=== PATIENT | female | born 1980 | race African-American/Black ===

== ENCOUNTER 2020-04-28 15:49 | Emergency (ER) | payer OTHER, SELFPAY ==
--- NOTE | ~2020-04-28 | US_ITS ---
US OB <=14 wk fetus w TV DATE: 04/28/2020 18:15 INDICATION: Abdominal pain, pelvic pain TECHNIQUE: Real time imaging and doppler analysis COMPARISON: None FINDINGS: There is a dichorionic diamniotic twin gestation. Both fetuses are live; Twin A heart rate of 155 beats per minute; crown rump length of 3.32 cm; 10 weeks 2 days estimated ge stational age. Twin B heart rate of 169 beats per minute; crown rump length of 2.83 cm; 9 weeks 4 days estimated ges tational age. Right ovary 3.5 x 2.1 x 2.4 cm. Left ovary 2.6 x 3.4 x 2.8 cm; 1.9 x 2.5 cm left ovarian simple cyst. No pelvic mass lesion or abnormal free pelvic fluid collection. IMPRESSION: Dichorionic diamniotic twin gestation Reviewed, dictated and finalized at [facility]. Reviewed, dictated and finalized at [facility]. [employer]
[2020-04-28 16:12] VITALS: BP 133/91; PULSE 112; RESP 20; TEMP 37.3; O2SAT 100
[2020-04-28 18:39] LABS: Basophils Absolute Auto 0.1 K/mm3 (0.0-0.1); Basophils Percent Auto 0.8 % (0.2-1.2); Eosinophils Absolute Auto 0.2 K/mm3 (0-0.3); Hematocrit 35.6 % (37.0-47.0); Hemoglobin 12.8 g/dL (12.0-15.0); Immature Granulocyte Absolute 0.03 K/mm3 (0.00-0.031); Immature Granulocyte Percent A 0.3 % (0-0.5); Lymphocytes Absolute Auto 2.92 K/mm3 (0.9-3.2); Lymphocytes Percent Auto 33.9 % (18.3-44.2); Mean Corpuscular Hemoglobin 30.5 pg (26-34); Mean Platelet Volume 10.3 fl (7.4-10.4); Monocytes Absolute Auto 0.6 K/mm3 (0.1-0.6); Monocytes Percent Auto 6.9 % (2.6-8.5); Neutrophils Absolute Auto 4.8 K/mm3 (1.3-6.7); Neutrophils Percent Auto 56.1 % (45.5-73.1); Platelet Count Result 373 k/mm3 (150-375); Red Blood Count 4.19 M/mm3 (4.2-5.4); Red Cell Distribution Width 12.8 % (11.5-14.5); White Blood Count 8.6 K/mm3 (4.5-10.0)
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
[2020-04-28] MEDS: SODIUM CHLORIDE 0.9% IV 1,000 ML 999 ML IV CONT (18:50)
[2020-04-28 19:01] LABS: Add Urine Microscopic? NO; Appearance Urine Clear (Clear); Bilirubin Urine Negative (Negative); Blood Urine Negative (Negative); Color Urine Straw (Yellow); Glucose Urine UA Negative (Negative); Ketones Urine Negative (Negative); Leukocyte Esterase Ur Negative LEU/UL (Negative); Nitrate Urine Negative (Negative); Protein Urine Negative (Negative); Specific Grav Ur 1.011 (1.001-1.035); Urobilinogen Urine Negative mg/dL (<2.0)
[2020-04-28 19:06] LABS: Alanine Aminotransferase 12 U/L (4-35); Albumin Level 4.3 g/dL (3.5-5.1); Alkaline Phosphatase 52 U/L (38-126); Anion Gap 5 mmol/L (8-16); Aspartate Amino Transferase 22 U/L (14-36); Bilirubin,Total 0.5 mg/dL (0.2-1.3); Blood Urea Nitrogen 10 mg/dL (7-17); Calcium 9.3 mg/dL (8.4-10.2); Carbon Dioxide 26 mmol/L (22-30); Chloride 102 mmol/L (98-107); Estimated Glomerular Filt Rate > 60; Glucose 84 mg/dL (65-105); Lipase 101 U/L (23-300); Potassium 3.5 mmol/L (3.4-5.0); Sodium 133 mmol/L (137-145)
[2020-04-28 19:19] VITALS: TEMP 37.3
[2020-04-28 19:21] VITALS: BP 143/92; PULSE 92; RESP 16; O2SAT 100
[2020-04-28 20:21] VITALS: BP 137/71; PULSE 91; RESP 18; O2SAT 96
== END 2020-04-28 20:23 | disposition home or self-care (01) ==
PROVIDERS: General Practice; Emergency Provider Emergency Medicine; PCP Obstetrics & Gynecology
DX: O9A.211 Injury, poisoning and certain other consequences of external causes complicating pregnancy, first trimester (principal); S39.012A Strain of muscle, fascia and tendon of lower back, initial encounter; O30.041 Twin pregnancy, dichorionic/diamniotic, first trimester; Z3A.10 10 weeks gestation of pregnancy; V43.52XA Car driver injured in collision with other type car in traffic accident, initial encounter
CPT/HCPCS: 36415; 76801; 76817; 80053; 81003; 83690; 84702; 85025; 85461; 96361; 96374; 99284; J0131; J7030

== ENCOUNTER 2020-06-27 11:17 | Observation (INO) | payer OTHER, SELFPAY ==
--- NOTE | ~2020-06-27 | US_ITS ---
EXAMINATION: US OB follow up, US OB transvaginal EXAM DATE: 06/27/2020 12:43 INDICATION: well being, measurement, twin gestations. 2nd trimester. TECHNIQUE: Pelvic obstetrical twin gestation, transabdominal and transvaginal sonogram was performe d by a technologist. There are multiple grayscale and Doppler images available for interpretation. C omparison is made to prior examination from 04/28/2020. FINDINGS: There are twin intrauterine gestations with a sac separation identified. One of the fetuses is live with heart rate 149 bpm, in vertex presentation, age by ultrasound 19 weeks 2 days (de tailed Biometrics below). The other nonviable fetus is much smaller, crown-rump length of 4 cm corres ponding to estimated gestational age 10 weeks 6 days. Placenta is posteriorly located and unremarkabl e. Cervical canal length is 7.5 cm, no cervical funneling. Subjectively expected amount of amniotic f luid. BIOMETRIC DATA for the live gestation: Biparietal diameter (BPD): 4.4 cm --------------> 19 weeks 2 days. Head circumference (HC): 16.0 cm ---------------> 18 weeks 6 days. Abdominal circumference (AC): 14.5 cm ---------> 19 weeks 6 days. Femur length (FL): 2.7 cm ------------------------> 18 weeks 1 day. These measurements are concordant. HC/AC ratio is 1.10 (The 5th -- 95th percentile range is 1.09-1.26. Estimated weight is 269 g +/- 40 g. This is the 54th percentile when the currently reported cl inical gestation age 18 weeks 6 days, clinical estimated date of delivery (LACI-OPE) 11/22 is used. Fet al estimated gestational age based on measurements from this exam is 19 weeks 0 days, with an estimat ed date of delivery (LACI-AUA) 11/21. IMPRESSION: 1. Twin gestations, one live with heart rate 149 bpm and expected interval growth at 54th percentile . 2. The other gestation nonviable with 4 cm crown-rump. 3. Placental canal measuring 7.5 cm Reviewed, dictated and finalized at [facility]. IMPRESSION: 1. Twin gestations, one live with heart rate 149 bpm and expected interval sobia wth at 54th percentile. 2. The other gestation nonviable with 4 cm crown-rump. 3. Placental canal measuring 7.5 cm
--- NOTE | 2020-06-27 11:17 | OBADM ---
This patient, Cole Duron, admitted to the OB room OB Post 116 for observation. Patient/family oriented to hospital policies and general routines including ID bracelet, bed and alarms, visiting hours, pain management, procedures, bathroom and other care routines, personal items, smoking policy, room service/diet, and visiting hours. Patient/Family are encouraged to report perceived risks to care and to ask questions if they do not understand what they are told or what they should do.
[2020-06-27 11:30] VITALS: PULSE 92; RESP 16; BMI 25.2
[2020-06-27 11:38] VITALS: BP 136/108; PULSE 94
[2020-06-27 11:45] VITALS: BP 112/74; PULSE 92
[2020-06-27 11:54] LABS: Add Urine Microscopic? YES; Appearance Urine Clear (Clear); Bacteria Urine 4+ /hpf; Bilirubin Urine Negative (Negative); Blood Urine Negative (Negative); Color Urine Yellow (Yellow); Glucose Urine UA Negative (Negative); Ketones Urine Negative (Negative); Leukocyte Esterase Ur Trace LEU/UL (NEGATIVE); Mucus Urine Rare /lpf; Nitrate Urine Negative (Negative); Protein Urine Negative (Negative); RBC Urine 0-2 /hpf (0-2); Specific Grav Ur 1.012 (1.001-1.035); Squamous Epithelial Cell Urine Few /hpf (Few); Urobilinogen Urine Negative mg/dL (<2.0)
[2020-06-27 12:00] VITALS: BP 116/79; PULSE 93
[2020-06-27] MEDS: ACETAMINOPHEN 500 MG TABLET 1000 MG PO (12:02)
--- NOTE | 2020-06-27 13:00 | PC.NURSE ---
pt back from ultrasound and states baby B is passed. Ultrasound report shows no heart tones for baby B. Baby A FHTs 140s. called Dr. Chang reported Ultrasound report which was expected due to previous ultrasound result. discharge order received with reinforcement of regular follow up in office.
--- NOTE | 2020-06-27 13:25 | PC.NURSE ---
Addendum entered by Rosalee Hagen RN 06/27/20 13:27: above note was entered for time 06/27/20 at 1140 Original Note: Baby A heart tones obtained rate of 150s. unable to obtain baby B FHTs. called Dr. Chang order received for ultrasound. pt states baby B has abnormalis via previous ultrasound.
--- NOTE | 2020-06-30 13:47 | P.PNOB_ITS ---
OB - Triage/Final Diagnosis Visit Information Comments/Additional reasons for admission: I have assessed the risk for this patient, Cole Duron, and determined that she would benefit from observation care. Evaluation Laboratory results: Laboratory Tests 06/27/20 11:39 Urine Color Yellow Urine Appearance Clear Urine pH 7.0 Ur Specific [place] 1.012 Urine Protein Negative Urine Glucose (UA) Negative Urine Ketones Negative Ur Blood (Man) Negative Urine Nitrate Negative Urine Bilirubin Negative Urine Urobilinogen Negative Ur Leukocyte Esterase Trace H Urine RBC 0-2 Urine WBC 7-9 H Ur Squamous Epith Cells Few Urine Bacteria 4+ H Urine Mucus Rare Final Diagnosis (1) Threatened miscarriage: Code(s): O20.0 - Threatened Status: Acute (2) Vanishing twin syndrome: Code(s): O31.10X0 - Continuing after spontaneous of one fetus or more, unspecified trimester, not applicable or unspecified Status: Acute
== END 2020-06-27 13:15 | disposition home or self-care (01) ==
PROVIDERS: Admitting Provider Obstetrics & Gynecology; Visit Provider Obstetrics & Gynecology
DX: O20.0 Threatened abortion (principal); O31.10X0 Continuing pregnancy after spontaneous abortion of one fetus or more, unspecified trimester, not applicable or unspecified; Z3A.00 Weeks of gestation of pregnancy not specified
CPT/HCPCS: 76816; 76817; 81001; 87077; 87086; 87088; 87186; A9270; G0378; G0379

== ENCOUNTER 2020-10-15 16:20 | Observation (INO) | payer OTHER, SELFPAY ==
[2020-10-15 16:41] VITALS: BP 127/81; PULSE 106
[2020-10-15 16:45] VITALS: BP 120/84; PULSE 105
[2020-10-15 17:00] VITALS: BP 126/88; PULSE 99
[2020-10-15 17:10] LABS: Add Urine Microscopic? YES; Appearance Urine Cloudy (Clear); Bacteria Urine 2+ /hpf; Bilirubin Urine Negative (Negative); Blood Urine Negative (Negative); Color Urine Yellow (Yellow); Glucose Urine UA 1+ mg/dL (Negative); Ketones Urine Negative (Negative); Leukocyte Esterase Ur Trace LEU/UL (Negative); Mucus Urine Rare /lpf; Nitrate Urine Negative (Negative); Protein Urine Negative (Negative); RBC Urine 0-2 /hpf (0-2); Specific Grav Ur 1.009 (1.001-1.035); Squamous Epithelial Cell Urine Many /hpf (Few); Urobilinogen Urine Negative mg/dL (<2.0)
[2020-10-15 17:12] VITALS: BMI 27.6
[2020-10-15 17:15] VITALS: BP 107/65; PULSE 99
[2020-10-15 17:30] VITALS: BP 109/69; PULSE 106
[2020-10-15 17:31] VITALS: TEMP 36.6
[2020-10-15] MEDS: ACETAMINOPHEN 500 MG TABLET 1000 MG PO (17:44)
--- NOTE | 2020-10-17 15:42 | P.PNOB_ITS ---
OB - Triage/Final Diagnosis Visit Information Reason for evaluation: threatened labor Comments/Additional reasons for admission: I have assessed the risk for this patient, Elizabeth Duron, and determined that she would benefit from observation care. Evaluation Laboratory results: Laboratory Tests 10/15/20 17:00 Urine Color Yellow Urine Appearance Cloudy H Urine pH 6.0 Ur Specific [place] 1.009 Urine Protein Negative Urine Glucose (UA) 1+ H Urine Ketones Negative Ur Blood (Man) Negative Urine Nitrate Negative Urine Bilirubin Negative Urine Urobilinogen Negative Leukocyte Esterase Rfl Trace H Urine RBC 0-2 Urine WBC 4-6 H Ur Squamous Epith Cells Many H Urine Bacteria 2+ H Urine Mucus Rare
== END 2020-10-15 17:51 | disposition home or self-care (01) ==
LOC: ANHOBPP 10-17 12:28
PROVIDERS: Admitting Provider Obstetrics & Gynecology; Visit Provider Obstetrics & Gynecology
DX: O47.9 False labor, unspecified (principal); Z3A.00 Weeks of gestation of pregnancy not specified
CPT/HCPCS: 81001; 84112; A9270; G0378; G0379

== ENCOUNTER 2020-10-16 06:31 | Observation (INO) | payer OTHER, SELFPAY ==
[2020-10-16] MEDS: ONDANSETRON HCL ODT 4 MG TABLET PO (06:56)
--- NOTE | 2020-10-16 07:03 | PM.OBTRLD ---
OB - Triage/Final Diagnosis Visit Information Reason for evaluation: other (nausea/vomit) Comments/Additional reasons for admission: I have assessed the risk for this patient, Elizabeth Mercy Duron, and determined that she would benefit from observation care.
--- NOTE | 2020-10-16 07:06 | OBADM ---
This patient, Elizabeth Duron, admitted to the OB room Labor/Delivery/Recovery 106 for observation. Patient/family oriented to hospital policies and general routines including ID bracelet, bed and alarms, visiting hours, pain management, procedures, bathroom and other care routines, personal items, smoking policy, room service/diet, and visiting hours. Patient/Family are encouraged to report perceived risks to care and to ask questions if they do not understand what they are told or what they should do.
== END 2020-10-16 06:55 | disposition home or self-care (01) ==
LOC: ANHLDR 06:39
PROVIDERS: Admitting Provider Obstetrics & Gynecology; Visit Provider Obstetrics & Gynecology
DX: O21.9 Vomiting of pregnancy, unspecified (principal); Z3A.00 Weeks of gestation of pregnancy not specified
CPT/HCPCS: 84112; 99199; A9270